=== PATIENT | female | born 1930 | race Caucasian/White ===

== ENCOUNTER 2016-05-27 11:13 | Observation (INO) | payer MEDICARE ==
[2016-05-27] VITALS (10 sets, daily range): BP systolic 68–178; BP diastolic 55–79; PULSE 70–77; RESP 15–20; O2SAT 92–98
[~2016-05-27] VITALS: Ht 154.9 cm; Wt 65.3 kg
--- NOTE | 2016-05-27 11:29 | DRSVH ---
PROCEDURE: CT BRAIN (TPA) ([id number]) INDICATIONS: Stroke TECHNIQUE: Noncontrast 4.5 mm thick angled axial sections acquired from the foramen magnum to the vertex, with c oronal reformats. COMPARISON: None. FINDINGS: Image quality: Excellent. CSF spaces: Basal cisterns are patent. No extra-axial fluid collections. The ventricles are symmet amber in size and shape. Brain: No intracranial bleeds or masses. There is extensive cerebral volume loss for age, with resu ltant ventricular and sulcal prominence. There are extensive periventricular and deep white matter c hronic small vessel ischemic changes. There is a small left basal ganglia lacunar infarct. There is intracranial internal carotid artery atherosclerosis. Skull and face: Calvarium and visualized facial bones appear intact, without suspicious lesions. Sinuses: Visualized sinuses and mastoids are clear. IMPRESSION: 1. No acute intracranial findings. 2. Extensive findings likely associated with chronic microvascular ischemic changes and old basal donna glia infarct. These findings were discussed with Dr. Gu at 11:27 AM on 05/27/16. This study fulfills neurological imaging criteria for inclusion or exclusion of acute stroke therapie s based on available published neurological guidelines. Dictated by: Irina Bey M.D. on 05/27/2016 at 11:25 Approved by: Irina Bey M.D. on 05/27/2016 at 11:28
[2016-05-27 11:34] LABS: BASOPHILS % (AUTO) 0.5 % (0-3); EOSINOPHILS % (AUTO) 2.4 % (0-5); MONOCYTES % (AUTO) 10.5 % (4-12); Mean Corpuscular Hemoglobin 30.6 pg (27.0-35.0); Mean Corpuscular Volume 91.9 fL (81-100); NEUTROPHILS % (AUTO) 67.7 % (40-74); Platelet Count 271 bil/L (150-400)
--- NOTE | 2016-05-27 11:48 | ED.REPORT ---
HPI-Stroke / CVA May 27, 2016 ED Provider: Rogerio Gu MD Pt is an 85 year old female with a hx of dementia, depression, and recent hip surgery presenting to the ED from [facility] via EMS after acute onset left sided weakness witnessed at 1030 today. Associated symptoms include change in mental status and left sided facial droop. The pt reports that she has fallen twice in the last couple of weeks, and reports nausea for the last 4 days. Pt has been getting Lovenox as recently as today because of the hip surgery 1 week ago. Blood sugar in the field was 164, BP was 119/72. Pt's daughter states that the pt is now speaking much more clearly than at the time of onset. Pt is not on Warfarin. Nursing Notes Stated Complaint: CVA Chief Complaint: Neuro Symptoms/ Deficits Nursing Notes Reviewed: Yes Allergies: Coded Allergies: No Known Allergies (Unverified , 05/27/16) Scheduled Cholecalciferol (Vitamin D3) (Vitamin D) 1,000 Unit Capsule 1,000 UNIT PO DAILY (Reported) Donepezil (Donepezil) 5 Mg Tablet 5 MG PO HS (Reported) Enoxaparin (Lovenox) 40 Mg/0.4 Ml Syringe 40 MG SUBQ DAILY (Reported) Fluoxetine (Fluoxetine) 20 Mg Capsule 20 MG PO HS (Reported) General Time Seen by Provider: 11:11 Chief Complaint Weakness, Mental status change Left-sided Hx Obtained From: Patient, Daughter, EMS Arrived By: Ambulance Time last known well 1030 Sudden in Onset?: Yes Progression Since Onset: Rapidly improving Severity: Current: No pain currently Severity: Maximum: No pain Recent Healthcare: No recent doctor visit, Recent hospitalization, Previous surgery Similar Sx Previous: No Risk Factors Risk Notes: Spoke to Dr. Patel, [facility], and he said TPA was not indicated because of the hip surgery within 1 week and the pt being on Lovenox. )( TPA Administration/Criteria Stroke Thrombolytic Therapy : TPA Considered: Yes Neurologist Contacted: At bedside Disc Risk/Benefit/Alternatives: Yes Consent Obtained: Patient TPA Administered Intravenously: No, not indicated Inclusion Criteria: Dx acute ischemic CVA, Measurable neuro deficit, Onset < 3hr before Tx, 18 years or older Relative Exclusion Crit: Major surgery / 14 days Addl Ex Criteria 3-4.5 Hr: Age > 80 years, On oral anticoagulant NIH Stroke Scale Level of Consciousness: Alert and responsive (0) Ask Month & Age: 1 question right (1) Open/Close Eyes/Hand Video Systems Engineer: Performs both tasks (0) Horizontal EO Movements: None (0) Visual Hernandez: No visual loss (0) Facial Palsy: Normal symmetry (0) Right Arm Motor Drift (10s): No drift 10 sec (0) Left Arm Motor Drift (10s): Drift, not touch bed (1) Right Leg Motor Drift (5s): No drift 5 sec (0) Left Leg Motor Drift (5s): Drift, not touch bed (1) Limb Ataxia FNF/Heel-Jones: No ataxia (0) Sensation (Arms/Legs/Face): Pinprick less sharp (1) (Left side) Language Aphasia: No aphasia, normal (0) Dysarthria: No dysarthria, normal (0) Extinction/Inattention: No exctinct/inattent (0) NIHSS Score: 4 Time NIHSS Performed: 11:21 Past Medical History Past Medical History Reports: Dementia, Depression Past Surgical History Left hip replacement 1 week ago Smoking History Unknown if Ever Smoker Ambulatory Status Independent Review of Systems Neurologic: Reports: Change LOC, Focal weakness (Left sided), Vision change, Weakness Complete sys rev & neg: except as marked. Physical Exam Initial Vital Signs Vital Signs (First) Date Time Temp Pulse Resp B/P Pulse Ox O2 Delivery O2 Flow Rate FiO2 17 11:19 36.7 77 15 91/55 98 Room Air Initial VS: Reviewed ENT: Mucous membranes moist, Conjunctiva normal, No scleral icterus Abdomen / GI: Soft, Non-tender, No guarding, No rebound, No distention Skin: Warm, Dry, No cyanosis Psychiatric: Mood/affect normal, Behavior normal, Normal thought content General/Constitutional: Awake, Alert, Well appearing Head / Eyes: Atraumatic, Normocephalic, PERRL Neck: Supple, Full range of motion, No swelling, Non-tender Respiratory / Chest: Breath sounds NL, Breath sounds = bilat, No respiratory distress, No rales, No rhonchi, No wheezing Cardiovascular: Heart rate NL, Regular rhythm, Heart sounds NL, No murmurs, Peripheral circulation NL Neurologic: Oriented X3, Speech NL Drift left arm. Left leg drop. No ataxia. Decreased sensation on left extremities. Left visual field cut. Thought content confused. Interpretation & Diagnostics Interpretation & Diagnostics: CT ANGIO HEAD AND NECK: IMPRESSION: 1. 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 2. 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 3. No aneurysm or occlusion. Dictated by: Irina Bey M.D. on 05/27/2016 at 12:57 Lab Results Interpretation Result Diagram: 05/27/16 1120 05/27/16 1120 Test 05/27/16 11:20 White Blood Count 5.9th/mm3 (3.8-10.1) Red Blood Count 4.18mil/mm3 (3.90-5.20) Hemoglobin 12.8g/dL (12.0-15.6) Hematocrit 38.4% (35.0-46.0) Mean Corpuscular Volume 91.9fL (81-100) Mean Corpuscular Hemoglobin 30.6pg (27.0-35.0) Mean Corpuscular Hemoglobin Concent 33.3% (32.0-37.0) Red Cell Distribution Width 14.7% (12.3-15.4) Platelet Count 271bil/L (150-400) Neutrophils (%) (Auto) 67.7% (40-74) Lymphocytes (%) (Auto) 18.2% (14-46) Monocytes (%) (Auto) 10.5% (4-12) Eosinophils (%) (Auto) 2.4% (0-5) Basophils (%) (Auto) 0.5% (0-3) Prothrombin Time 10.7sec (8.1-12.5) Prothromb Time International Ratio 1.00ratio Activated Partial Thromboplast Time 31.5sec (22.8-33.0) Sodium Level 139mEq/L (134-144) Potassium Level 3.5mEq/L (3.5-5.2) Chloride Level 97mEq/L (97-108) Carbon Dioxide Level 26mmol/L (18-29) Blood Urea Nitrogen 19mg/dL (8-27) Creatinine 1.07mg/dL (0.57-1.00) Estimat Glomerular Filtration Rate 70mL/min (>59) Glucose Level 140mg/dL (60-99) Calcium Level 8.2mg/dL (8.5-10.1) Total Bilirubin 0.5mg/dL (0.0-1.2) Aspartate Amino Transf (AST/SGOT) 44U/L (0-50) Alanine Aminotransferase (ALT/SGPT) 35U/L (0-32) Alkaline Phosphatase 61U/L (25-165) Troponin T 0.038ug/L (0.0-0.011) Total Protein 5.9g/dL (6.4-8.4) Albumin 3.5g/dL (3.4-5.0) ECG Interpretation Time: 11:35 Interpreted by: ED physician Normal ECG Interpretation: Normal ECG w/ rate of... (78) CT Head Interpretation CT BRAIN (TPA): IMPRESSION: 1. No acute intracranial findings. 2. Extensive findings likely associated with chronic microvascular ischemic changes and old basal ganglia infarct. These findings were discussed with Dr. Gu at 11:27 AM on 05/27/16. This study fulfills neurological imaging criteria for inclusion or exclusion of acute stroke therapies based on available published neurological guidelines. Dictated by: Irina Bey M.D. on 05/27/2016 at 11:25 Study: Head CT no contrast Interpretation / Wet Read by: Interpret - Radiologist Re-Eval/Medical Decision Re-Evaluation/Progress #1: Time of Eval: 11:42 Patient Status: Condition improved Re-Evaluation/Progress Note: Discussed consulation with Dr. Martin about not administering TPA. Discussed plan for CT angio. Pt understands and agrees. Re-Evaluation/Progress #2: Time of Eval: 11:49 Patient Status: Condition improved Re-Evaluation/Progress Note: Discussed EKG results. Re-Evaluation/Progress #3: Time of Eval: 13:27 Patient Status: Condition improved Re-Evaluation/Progress Note: Discussed CT angio results and consultation with Dr. Patel. Consultation #1: Referral / Consult Name: Bib Patel MD Consulted With: Neurology Call Returned at: 11:38 Note: [facility]. Do not give the patient TPA because of the Lovenox. Consultation #2: Referral / Consult Name: Bib Patel MD Consulted With: Neurology Call Returned at: 13:19 Note: [facility]. She does not need a stent or a transfer. Consultation #3: Referral / Consult Name: Stanislaw Sexton DO Consulted With: Hospitalist Call Returned at: 13:42 Oral Surgeon: Will see patient, Agrees with plan, Accepts admit Counseled Regarding: Diagnosis, Lab results, Need for follow-up, When/why to return to ED Patient Discharge & Departure Impression: Primary Impression: Stroke CVA mechanism: stenosis Precerebral and cerebral artery: carotid artery, left Qualified Code: I63.232 - Cerebral infarction due to unspecified occlusion or stenosis of left carotid arteries Disposition: ADMITTED TO HOSPITAL Discharge Condition All VS Reviewed: Yes Condition: Improved Referrals: Barbara Godwin MD Crit Care Except Billable Proc Time Spent: 30-74 minutes Services Performed: Patient management by me, Time spent at bedside, Reviewing test results, Reviewing imaging, Discussing patient care, Documentation in record, Time with fam/surrogate Scribe Attestation Portions of this note were transcribed by Esme Bray. I, Dr. Gu personally performed the history, physical exam and medical decision-making; I reviewed and confirmed the accuracy of the information in the transcribed note. Signed by: Marilu Call, 05/27/2016 and 1342. copies to: Barbara Godwin MD, Kirk H MD May 27, 2016 11:48 ESME BRAY May 27, 2016 11:49
[2016-05-27 12:13] LABS: TROPONIN T 0.038 ug/L (0.0-0.011)
--- NOTE | 2016-05-27 13:08 | DRSVH ---
PROCEDURE: CT ANGIO HEAD AND NECK (P) INDICATIONS: left hemianopsia TECHNIQUE: Pre-contrast 4.5 mm thick sections acquired from the foramen magnum to the vertex. After the adminis tration of intravenous contrast, 1 mm thick sections acquired from the aortic arch through the [place] of [place]. Post-contrast 4.5 mm thick sections then re-acquired from the foramen magnum to the vert ex. 3-dimensional gayshhg-mbatsmflg-ztdblxunnh (MIP) and/or volume rendering reformats were acquired of the central intracranial vasculature and neck separately. For radiation dose reduction, the foll owing was used: automated exposure control, adjustment of mA and/or kV according to patient size. COMPARISON: None. FINDINGS: Image quality: Excellent. BRAIN: CSF spaces: Ventricles are normal in size and shape. Basal cisterns are patent. No extra-axial flu id collections. Brain: No midline shift. No intracranial bleeds or masses. Cuevas-white matter interface appears int act. Skull and face: Calvarium and facial bones appear intact, without suspicious lesions. Orbits appear normal. Sinuses: Sinuses and mastoids are clear. HEAD CT ANGIOGRAPHY: Anterior circulation: Intracranial internal carotid arteries are normal in overall size and flow. Mi ld to moderate stenosis is present within the cavernous portion of the left internal carotid artery. The flow within the paired anterior cerebral arteries is normal and symmetric. The flow within the l eft middle cerebral artery has a normal appearance. A focal high-grade stenosis is present within the right M1 segment. No occlusion or aneurysm. Posterior circulation: Visualized portions of the vertebral arteries demonstrate normal caliber, and join to form a normal appearing basilar artery. Flow within the posterior cerebral arteries is norm al and symmetric. No aneurysms are seen. NECK CT ANGIOGRAPHY: Carotid system: The great vessels demonstrate a conventional anatomy as they arise from the aortic a rc. The origins of the common carotid arteries appear patent. The common carotid arteries demonstr ate normal caliber and courses. Dense atheromatous calcification is present at the bilateral carotid bulbs with a mild right and moderate left degree of luminal narrowing. The more superior portions of the cervical internal carotid arteries demonstrate normal course and caliber. The internal carotid ar teries demonstrate normal calibers and courses. Posterior circulation: The origins of the vertebral arteries both appear widely patent. The more peter perior extracranial portions of both vertebral arteries also demonstrate normal courses and calibers. They join to form a normal appearing basilar artery. Soft tissues: The thyroid gland has a heterogeneous appearance with multiple subcentimeter hypodense nodules present. Multiple shotty subcentimeter mediastinal lymph nodes are visualized within the supe rior mediastinum. Dense atheromatous calcifications are present at the aortic arch. Bones: No suspicious bony lesions. Visualized cervical spine appears normally aligned. IMPRESSION: 1. 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 2. 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 3. No aneurysm or occlusion. Dictated by: Irina Bey M.D. on 05/27/2016 at 12:57 Approved by: Irina Bey M.D. on 05/27/2016 at 13:07
[2016-05-27] MEDS ORDERED: DONE5TAB30 PO (14:05)
[2016-05-27] MEDS ORDERED: LOV40 SUBQ (14:05)
[2016-05-27] MEDS ORDERED: CHOL100045 PO (14:05)
[2016-05-27] MEDS ORDERED: FLUO20CA25 PO (14:05)
--- NOTE | 2016-05-27 14:11 | NUR ---
Evaluation completed. Please go to "Notes" then click on "Assessments and Notes" (bottom left corner of screen). Then select appropriate discipline tab on top of screen.
[2016-05-27] MEDS ORDERED: Alum-Mag Hydrox-Simeth 30 mL Suspension PO PRN (14:40)
[2016-05-27] MEDS ORDERED: Ondansetron 2 mg/mL 2 mL Inj IV PRN (14:40)
[2016-05-27] MEDS ORDERED: Labetalol 5 mg/mL 4 mL Inj IVPUSH PRN (14:40)
[2016-05-27] MEDS ORDERED: Polyethylene Glycol (PEG) 17 Gm Powder PO PRN (14:40)
[2016-05-27] MEDS ORDERED: Ondansetron 2 mg/mL 2 mL Inj IVPUSH PRN (14:40)
[2016-05-27] MEDS ORDERED: HYDROcodone-APAP 5-325 mg Tablet PO PRN (14:40)
--- NOTE | 2016-05-27 14:59 | PCM.HPMED ---
Subjective Date of Service May 27, 2016 Primary Provider: Admitting Physician: Stanislaw Sexton DO Primary Care Physician: Other,Physician Attending Physician: Stanislaw Sexton DO Chief Complaint: slurred speech and left arm weakness History of Present Illness: Charlie is a pleasant 85 yo right hand dominant Female with history of Dementia and recent partial left hip replacement secondary to a GLF who presents to the ED by EMS from [facility] for acute onset of altered mental status, slurred speech, and left arm weakness. Per patient's daughter, while visiting her at the [facility], they noted that around 1030 this morning, the patient seemed to have fallen asleep briefly then woke up shortly with confusion, slurred speech, left sided facial droop, and left arm weakness. They reported this to a nurse who then called EMS. Per the family, by the time patient came to the ED, which took about 30 mins, the majority of her symptoms had improved. According to the patient, she has had some nausea earlier this morning and also some nausea the last couple of days, but denied any CP, abd pain, SOB, or fevers. Of note, patient had a partial left hip replacement about 1 week ago in [place] secondary to a broken left femur after a GLF. She was placed on Lovenox daily for DVT prophylaxis afterwards. EMS noted patient's BG was 164 in the field. In the ED, patient had a CT brain that did not show any acute events. Her BP was initially low, but came up to 161 /79. Dr. Patel from [facility] was consulted and did not recommend tPA due to patient already being on Lovenox. Of note, patient's Troponin was slightly elevated at 0.038, but her EKG was read as NSR with rate in the 70s with no acute ST changes. Review of Systems: 12 Point ROS negative except as stated in the HPI Allergies Coded Allergies: No Known Allergies (Unverified , 05/27/16) Home Medications Reports Donepezil QHS for dementia Lovenox Sc daily for prophylaxis. PMH Dementia Surgical History Left hip fracture s/p partial hip replacement Family History Noncontributory Social History Hx Alcohol Use: Yes (very rarely) Hx Substance Use: No Hx Tobacco Use: No Living Arrangement: Long-Term Facility ([facility], but resident of [place]) Exam Vital Signs Vital Sign - Last Date Time Temp Pulse Resp B/P Pulse Ox O2 Delivery O2 Flow Rate FiO2 05/27/16 12:51 72 15 132/66 94 Room Air 05/27/16 11:19 36.7 Exam Gen: Well developed elderly female who is tired, but arousable. She is in NAD. She is cooperative and speaks full fluent sentences HEENT: Old bruise on left temporal region. PERRLA, EOMI, Oropharynx non- erythematous Neck: Soft, trachea midline CV: RRR with no m/r/c appreciated. No JVD noted, peripheral pulses intact and equal in both UE, no carotid bruits noted Resp: Some fine rales in LLL, but no wheezing, rhonchi, or crackles. Normal Resp effort. Abd: Soft, NT, ND, normoactive BS present MSK: Mildly decreased MS of LLE only. No tender joints. Neuro: CN2-12- grossly intact. DTRs2+ and equal, No pronator drift at time of this exam, but some left sided inattention noted. Gait was not tested, pt was baseline 2 person assist at SNF while rehabbing Skin: Warm, dry, intact Psych: Appropriate mood and affect Lab and Diagnostics Result Diagram: 05/27/16 1120 05/27/16 1120 X-Rays, CTs and MRIs CTA head and neck IMPRESSION: 1. 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 2. 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 3. No aneurysm or occlusion. Assessment & Plan Pleasant 85 yo right hand dominant Female with history of Dementia and recent partial left hip replacement secondary to a GLF who presents to the ED by EMS from [facility] for acute onset of altered mental status, slurred speech, and left arm weakness. Her symptoms have been rapidly resolving today. #Likely TIA, POA Patient's acute onset of symptoms and rapid resolution makes this more likely a TIA. She was noted to score a 4 on her NIHSS in the the ED. ABCD2 score of 4 - Mod risk CTA brain and neck in ED reassuring, although did show an old left basal ganglia lacunar infarct. There was also a high grade stenosis of the M1 of the right MCA. Plan will be to continue frequent neuro checks, allow permissive hypertension < 220/110. If patient's BP is greater than 220/110 or symptomatic, then use IV Labetalol prn and notify MD. Speech has been evaluated and patient will be placed on nectar thick/ soft diet for now. Aspirin given, lipid panel in AM, and Echo in the AM. PT/OT eval in the AM. #Elevated Troponin, POA Initial Trop in ED was 0.038. EKG was reassuring with no acute ST changes. Will continue to trend. Uncertain of etiology, no baseline value to compare to. #Left hip fracture s/p partial replacement, POA Will plan to continue Lovenox 20mg SC daily for DVT prophylaxis since patient recently had surgery. #H/o Dementia, POA Continue home Donepezil Tylenol prn pain Zofran prn nausea Restoril prn insomnia Dispo: Patient admitted under observation status and will require less than 2 nights for evaluation. Pain Evaluation: Adequate Pain Control VTE Prophylaxis: Sub-Q Enoxaparin, SCDs Resuscitation Status: DNR/DNI:Do Not Resuscitate/Intubate Time spent 55 minutes Attending Statement I have seen and evaluated patient at bedside in addition to directly supervising care provided by resident physician. I agree with above documentation. Please note, following discussion with daughter / POA we have determined an intermediate level of evaluation being most prudent given patient advanced directives, and goals of limited intervention. MRI will therefor be deferred given patients anxiety associated with these type of studies, and unlikelihood of altering treatment course which will be addition of ASA only as per [facility] Neurologist insulation board back tender Dr. Bib Patel. Telemetry however should cause little discomfort/anxiety, Echo as well will offer limited discomfort , so these studies are currently ordered and pending UNLESS family should reconsider. Eder Talbot DO May 27, 2016 14:59 Stanislaw Sexton DO May 27, 2016 16:43
--- NOTE | 2016-05-27 19:27 | NUR ---
Admit note: Patient was brought to [facility] from the ER at 1515. Patient is alert and oriented to herself with mild s/s of dementia. Her daughter is at her bedside and assisted with patients history and physical. Patient stated that she is not having pain. She is eating her soft /nectar thick diet without issues. Her 02 sat is in the 90s on room air. Her hand publicity consultant are equal and strong. She has no noticeable facial droop. Her left hip surgical incision is CDI no s/s of infection with steri strips in place. Hip precautions observed when pivot turn transferring patient to the bed side commode. Patient was oriented to her room caregivers and call light. Her bed alarm is on . Her bed rails are up x3.
[2016-05-28 05:31] VITALS: BP 157/79; PULSE 72; RESP 18; O2SAT 93
--- NOTE | 2016-05-28 06:01 | NUR ---
Mentation Patients Neuros WNL. equal push pulls and office sweeper strength. no facial droop, no tongue deviation. Patient word searches and provides answers to questions that are not logical. alert to self only she believes [place]. pleasantly confused and difficult to reorient to place and time. patient slept throughout the night. does not use call light. [place] alarm in place. 3 side rails up for safety. 2PA with FWW to BSC needs frequent queuing.
[2016-05-28 06:04] LABS: BASOPHILS % (AUTO) 0.9 % (0-3); MONOCYTES % (AUTO) 14.1 % (4-12); Mean Corpuscular Hemoglobin 31.1 pg (27.0-35.0); Mean Corpuscular Volume 92.7 fL (81-100); NEUTROPHILS % (AUTO) 61.9 % (40-74); Platelet Count 232 bil/L (150-400)
[2016-05-28 06:31] LABS: Magnesium 2.1 mg/dL (1.6-2.6)
[2016-05-28] MEDS ORDERED: Potassium Chloride 20 mEq SR Tablet PO ONE (08:00)
[2016-05-28 10:00] VITALS: BP 148/80; PULSE 73; RESP 18; O2SAT 94
[2016-05-28 11:07] VITALS: PULSE 69
--- NOTE | 2016-05-28 11:20 | DRSVH ---
[facility] [address] [place] [address] Echocardiogram Report Name: KIMBERLYN LLANOS Study Date: 05/28/2016 Height: 61 in Hospital Exam Location: [facility] Weight: 144 lb Gender: Female BSA: 1.6 m2 : 1930 Age: 85 yrs BP: 157/79 mm Hg Reason For Study: STROKE Ordering Physician: HOSPITALIST [facility] Performed By: Irena Allen Referring Physician: DR. LÓPEZ ROSE Interpretation Summary The left ventricle is normal in size, wall thickness, and systolic function without any focal wall motion abnormalities. The ejection fraction is estimated to be 60-65%. The left atrium is severely dilated. The right atrium is moderately dilated. There is no Doppler evidence for an atrial septal defect. There is trace tricuspid regurgitation. The right ventricular systolic pressure is estimated at 33 mmHg assuming a right atrial pressure of 3 mm Hg. Procedure: A two-dimensional transthoracic echocardiogram with color flow and Doppler was performed. The study quality was technically adequate. There is no prior echocardiogram noted for this patient. The patient was in normal sinus rhythm during the exam. Left Ventricle: The left ventricle is normal in size, wall thickness, and systolic function without any focal wall motion abnormalities. The ejection fraction is estimated to be 60-65%. Spectral Doppler of the mitral valve shows a normal E/A wave ratio. Right Ventricle: The right ventricle is normal in size and function. Atria: The left atrium is severely dilated. The right atrium is moderately dilated. There is no Doppler evidence for an atrial septal defect. Mitral Valve: The mitral valve leaflets appear normal. There is no evidence of stenosis, fluttering, or prolapse. There is mild mitral annular calcification. There is trace mitral regurgitation. Aortic Valve: The aortic valve is trileaflet. The aortic valve opens well. No aortic regurgitation is present. Tricuspid Valve: The tricuspid valve leaflets are thin and pliable. There is trace tricuspid regurgitation. The right ventricular systolic pressure is estimated at 33 mmHg assuming a right atrial pressure of 3 mm Hg. Pulmonic Valve: The pulmonic valve leaflets are thin and pliable; valve motion is normal. There is a trace or physiologic amount of pulmonic regurgitation. Great Vessels: The aortic root is normal size. The dimensions of the ascending aorta are normal. The pulmonary artery is normal size. The IVC is of normal diameter and collapses greater than 50% with a sniff. This suggests a low right atrial pressure of 3 mm Hg. Pericardium/ Pleura There is no pericardial effusion. There is no pleural effusion. MMode/2D Measurements & Calculations LVIDd: 4.4 cm LA dimension: 3.7 cm RA long axis LVOT diam: 1.9 cm LVIDs: 2.6 cm AoV Opening FS: 40.8 % LA A2 area: 27.1 cm RA area EPSS: 0.57 cm LA A4 area: 22.1 cm Ao root diam IVSd: 1.0 cm LA length (vol) : 21.7 cm LVPWd: 1.0 cm RA vol asc Aorta Diam LA vol: 86.3 ml : 70.3 ml LA vol index RA Ao Arch Diam (Prox : 42.8 mm/ Trans): 3.0 cm RVDd major IVC diam: 2.1 cm : 6.2 cm LV chino. diameter/BSA LV sys. diameter/BSA RVD1 (basal) RVD2 (mid): 2.6 cm (cm/m^2): 2.7 (cm/m^2): 1.6 Doppler Measurements & Calculations Ao V2 max MV E max kevin MV E/A: 1.2 TR max kevin : 146.0 cm/sec : 108.0 cm/sec Med Peak E' Kevin : 273.2 cm/sec Ao max PG MV A max kevin TR max PG : 8.5 mmHg : 89.0 cm/sec E/E' med: 19.1 : 29.9 mmHg Ao mean PG MV P1/2t: 69.8 msec Lat Peak E' Kevin PA V2 max : 97.9 cm/sec LVOT Max Kevin E/E' lat: 13.8 PA mean PG : 116.4 cm/sec E/e' average: 16.5 MATA(I,D): 2.2 cm Pulm A Revs Dur PA Accel Time sev ratio : 0.07 sec MV A dur: 0.11 sec MV dec time MV P1/2t max kevin Ao V2 mean LV V1 max PG : 0.24 sec : 102.1 cm/sec Ao V2 VTI: 32.3 cm LV V1 VTI MVA(P1/2t): 3.2 cm2 : 24.7 cm MATA(V,D): 2.3 cm2 PA V2 mean MATA indexed to BSA Pulm A Revs Dur - MV : 74.3 cm/sec (cm^2/m^2): 1.3 A Dur: 0.02 msec Electronically signed by: Osmany Boyd on Reading Physician:05/28/2016 11:19 AM
--- NOTE | 2016-05-28 11:55 | PCM.DIMED ---
Discharge Instructions Date of Service May 28, 2016 Dates of Hospitalization May 27, 2016 at 14:07 Discharge Diagnosis Discharge Diagnosis #Transient Ischemic Attack #Elevated Troponin #Left hip fracture s/p partial replacement, #H/o Dementia Medication Instructions Please take your medications as instructed Diet No restrictions Activity Outpatient Physical Therapy Call your provider Fever or Chills, Shortness of breath, Bleeding, Chest pain, Weakness (unilateral ) Patient Instructions Please establish with a PCP within 1-2 weeks Follow-up Provider: INGRID Follow-up with PCP in: 1 week Eder Talbot DO May 28, 2016 11:55
[2016-05-28] MEDS ORDERED: ASPI-973 PO (11:57)
[2016-05-28] MEDS ORDERED: ATOR20TA PO (11:57)
--- NOTE | 2016-05-28 13:45 | NUR ---
Social Work-initial assessment/readiness for discharge: Data:See initial assessment. Pt is a 85 y/o female who was admitted on 05/27/16 for CVA per H&P. Pt's insurance is [facility] and PCP is other.EMR Reviewed. Pt's readmission score is 2. BARBER met with and daughter Latha [phone] at bedside to discuss discharge planning, SW role explained. Pt has dementia. Daughter confirms that pt has been residing at [facility] for the last week after hip surgery from [facility]. Pt normally resides on [address]. Pt has been using a fww and does not drive. Pt has no HH history. Pt has no senior living care or VA benefits. Daughter confirms they have completed DPOA/ advanced directive, SW encouraged a copy to be brought in. Daughter confirms plan is for pt to return to [facility] for continued rehab. BARBER spoke with Michelle Hurd, admissions at [facility] who confirms they can accept pt back when ready. Paperwork placed in the chart. SW provided phone number and plan on white board in room. SW will continue to follow. Assessment:Pt who resides at [facility]. Plan:Pt to likely discharge back to [facility] when medically stable. Paperwork placed in the chart.SW will continue to follow. MOISE Bills Addendum: 05/28/16 at 1351 by ANGELY CROCKETT SS Amended: Links added.
--- NOTE | 2016-05-28 13:51 | NUR ---
Social Work-discharge: Data:EMR reviewed. Pt is on day 1 of hospitalization for CVA per H&P. Pt is medically stable for discharge today. BARBER confirmed with Shaina Prather Admissions at [facility] that they are able to accept pt back today. BARBER faxed orders and created packet. [facility] arranged transport for 1500. BARBER updated pt and daughter, both agreeable, daughter to update family. RN,UC,pt/daughter, and [facility] all updated and agreeable to plan. Assessment:Pt who would benefit from SNF. Plan:Pt to discharge back to [facility] today via cabulance at 1500. RN,UC,pt/daughter, and [facility] all updated and agreeable to plan. MOISE Bills
[2016-05-28 14:21] VITALS: BP 119/65; PULSE 69; RESP 18; O2SAT 96
--- NOTE | 2016-05-28 15:06 | NUR ---
Discharge Body sheet filled out, Tele removed, IV DCd intact. All belongings with pt. No s/sx of distress. No c/o pain. Report called to Caro Juan RN. Pt picked up at 1505 by transport service, taken down in .
--- NOTE | 2016-05-28 16:06 | PCM.DC.MED ---
Discharge Summary Date of Service May 28, 2016 Dates of Hospitalization Date of Hospital Admission May 27, 2016 at 14:07 Date of Discharge: May 28, 2016 Providers: Admitting Physician: Stanislaw Sexton DO Primary Care Physician: Other,Physician Attending Physician: Stanislaw Sexton DO Diagnosis at Time of Discharge Diagnosis at Time of Discharge #Transient Ischemic Attack #Elevated Troponin #Left hip fracture s/p partial replacement, #H/o Dementia Procedures XRay, CTs & MRIs CTA head and neck IMPRESSION: 1. 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 2. 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 3. No aneurysm or occlusion. Brain CT IMPRESSION: 1. No acute intracranial findings. 2. Extensive findings likely associated with chronic microvascular ischemic changes and old basal ganglia infarct. These findings were discussed with Dr. Gu at 11:27 AM on 05/27/16. This study fulfills neurological imaging criteria for inclusion or exclusion of acute stroke therapies based on available published neurological guidelines. Cardiac Echo Impression Interpretation Summary The left ventricle is normal in size, wall thickness, and systolic function without any focal wall motion abnormalities. The ejection fraction is estimated to be 60-65%. The left atrium is severely dilated. The right atrium is moderately dilated. There is no Doppler evidence for an atrial septal defect. There is trace tricuspid regurgitation. The right ventricular systolic pressure is estimated at 33 mmHg assuming a right atrial pressure of 3 mm Hg. Brief History Charlie is a pleasant 85 yo right hand dominant Female with history of Dementia and recent partial left hip replacement secondary to a GLF who presents to the ED by EMS from [facility] for acute onset of altered mental status, slurred speech, and left arm weakness. Per patient's daughter, while visiting her at the [facility], they noted that around 1030 this morning, the patient seemed to have fallen asleep briefly then woke up shortly with confusion, slurred speech, left sided facial droop, and left arm weakness. They reported this to a nurse who then called EMS. Per the family, by the time patient came to the ED, which took about 30 mins, the majority of her symptoms had improved. According to the patient, she has had some nausea earlier this morning and also some nausea the last couple of days, but denied any CP, abd pain, SOB, or fevers. Of note, patient had a partial left hip replacement about 1 week ago in [place] secondary to a broken left femur after a GLF. She was placed on Lovenox daily for DVT prophylaxis afterwards. EMS noted patient's BG was 164 in the field. In the ED, patient had a CT brain that did not show any acute events. Her BP was initially low, but came up to 161 /79. Dr. Patel from [facility] neuro was consulted and did not recommend tPA due to patient already being on Lovenox. Of note, patient's Troponin was slightly elevated at 0.038, but her EKG was read as NSR with rate in the 70s with no acute ST changes. Hospital Course Pleasant 85 yo right hand dominant Female with history of Dementia and recent partial left hip replacement secondary to a GLF who presents to the ED by EMS from [facility] for acute onset of altered mental status, slurred speech, and left arm weakness. Her symptoms rapidly resolved in <24 hours. She had a brain CT, and CTA, and also an echocardiogram that were fairly benign. Family declined an MRI. She was discharged back to SNF in good condition. #Likely TIA, POA Patient's acute onset of symptoms and rapid resolution makes this more likely a TIA. She was noted to score a 4 on her NIHSS in the the ED. ABCD2 score of 4 - Mod risk CTA brain and neck in ED reassuring, although did show an old left basal ganglia lacunar infarct. There was also a high grade stenosis of the M1 of the right MCA. Plan was to continue frequent neuro checks, allow permissive hypertension <220/ 110. If patient's BP is greater than 220/110 or symptomatic, then use IV Labetalol prn and notify MD. Speech evaluated her and patient will be placed on nectar thick/ soft diet for now. Aspirin given, lipid panel showed LDL of 130s Echo was fairly benign and did not show any thrombus. She was discharged with a statin and daily aspirin. She was not taking a daily aspirin prior to this incident. #Elevated Troponin, POA Initial Trop in ED was 0.038. EKG was reassuring with no acute ST changes. Trops were stable and consistently elevated but <0.04 #Left hip fracture s/p partial replacement, POA Will plan to continue Lovenox 20mg SC daily for DVT prophylaxis since patient recently had surgery. #H/o Dementia, POA Continued home Donepezil Continued Fluoxetine Exam Vital Signs (Last) Date Time Temp Pulse Resp B/P Pulse Ox O2 Delivery O2 Flow Rate FiO2 05/28/16 14:21 36.4 69 18 119/65 96 Room Air Exam Gen: Well developed elderly female who appears in NAD. Cooperative HEENT: Old bruise on left temporal region. CV: RRR with no m/r/c appreciated. Resp: CTAB Normal Resp effort. Abd: Soft, NT, ND, normoactive BS present MSK: Grossly intact and equal Neuro: Non-focal exam, face symmetric, Alert and oriented to place and person, but not time. Skin: Warm, dry, intact Psych: Flat affect. Test 05/27/16 11:20 05/27/16 21:00 05/28/16 05:25 Prothrombin Time 10.7sec (8.1-12.5) Prothromb Time International Ratio 1.00ratio Activated Partial Thromboplast Time 31.5sec (22.8-33.0) Total Bilirubin 0.5mg/dL (0.0-1.2) Aspartate Amino Transf (AST/SGOT) 44U/L (0-50) Alanine Aminotransferase (ALT/SGPT) 35U/L (0-32) Alkaline Phosphatase 61U/L (25-165) Total Protein 5.9g/dL (6.4-8.4) Albumin 3.5g/dL (3.4-5.0) Troponin T 0.031ug/L (0.0-0.011) White Blood Count 5.3th/mm3 (3.8-10.1) Red Blood Count 3.83mil/mm3 (3.90-5.20) Hemoglobin 11.9g/dL (12.0-15.6) Hematocrit 35.5% (35.0-46.0) Mean Corpuscular Volume 92.7fL (81-100) Mean Corpuscular Hemoglobin 31.1pg (27.0-35.0) Mean Corpuscular Hemoglobin Concent 33.5% (32.0-37.0) Red Cell Distribution Width 14.5% (12.3-15.4) Platelet Count 232bil/L (150-400) Neutrophils (%) (Auto) 61.9% (40-74) Lymphocytes (%) (Auto) 19.5% (14-46) Monocytes (%) (Auto) 14.1% (4-12) Eosinophils (%) (Auto) 3.0% (0-5) Basophils (%) (Auto) 0.9% (0-3) Sodium Level 138mEq/L (134-144) Potassium Level 3.3mEq/L (3.5-5.2) Chloride Level 101mEq/L (97-108) Carbon Dioxide Level 25mmol/L (18-29) Blood Urea Nitrogen 19mg/dL (8-27) Creatinine 0.73mg/dL (0.57-1.00) Estimat Glomerular Filtration Rate 109mL/min (>59) Glucose Level 103mg/dL (60-99) Calcium Level 8.1mg/dL (8.5-10.1) Magnesium Level 2.1mg/dL (1.6-2.6) Triglycerides Level 83mg/dL (0-149) Cholesterol Level 196mg/dL (100-199) LDL Cholesterol, Calculated 136.400mg/dL (0-99) VLDL Cholesterol 16.600mg/dL HDL Cholesterol 43mg/dL (>39) Cholesterol/HDL Ratio 4.56 (0.0-4.4) Thyroid Stimulating Hormone (TSH) 5.270uIU/mL (0.450-4.500) Free Thyroxine 1.42ng/dL (0.82-1.77) Thyroxine (T4) 6.4ug/dL (4.7-13.3) Discharge Medications Discharge Medications Aspirin (Aspirin) 81 Mg Tablet 81 MG PO DAILY Prescribed by: RAKAN TALBOT DO Atorvastatin (Lipitor) 20 Mg Tablet 20 MG PO HS Prescribed by: RAKAN TALBOT DO Cholecalciferol (Vitamin D3) (Vitamin D) 1,000 Unit Capsule 1,000 UNIT PO DAILY (Reported) Donepezil (Donepezil) 5 Mg Tablet 5 MG PO HS (Reported) Enoxaparin (Lovenox) 40 Mg/0.4 Ml Syringe 40 MG SUBQ DAILY (Reported) Fluoxetine (Fluoxetine) 20 Mg Capsule 20 MG PO HS (Reported) Additional med instructions Please take your medications as instructed Followup Plan Disposition: SNF Discharge Diet: No restrictions Discharge Activity: Outpatient Physical Therapy Patient Instructions Please establish with a PCP within 1-2 weeks Follow-up Provider: NOPCP Follow-up with PCP in: 1 week Attending Statement The patient was seen and examined together with Resident/House-staff on 05/28/16 and I agree with the history, exam and plan as outlined in the note above. [facility] DO May 28, 2016 16:06 Prem Munroe May 29, 2016 18:01
== END 2016-05-28 15:00 ==
LOC: SED 11:13 → INTOOBSV 14:07 → MPC 14:07
PROVIDERS: ADMIT Family Medicine; ATTEND Family Medicine
DX: G45.9 Transient cerebral ischemic attack, unspecified (principal); R79.89 Other specified abnormal findings of blood chemistry; S72.002D Fracture of unspecified part of neck of left femur, subsequent encounter for closed fracture with routine healing; M97.02XD Periprosthetic fracture around internal prosthetic left hip joint, subsequent encounter; F03.90 Unspecified dementia, unspecified severity, without behavioral disturbance, psychotic disturbance, mood disturbance, and anxiety
CPT/HCPCS: 36415; 70450; 70496; 70498; 80048; 80053; 80061; 82948; 83036; 83735; 84436; 84439; 84443; 84484; 85025; 85610; 85730; 92526; 92610; 93005; 97161; 99291; C8929; G0378; G8978; G8979; G8996; G8997; J1650; Q9967